=== PATIENT | male | born 1940 | race Caucasian/White ===

== ENCOUNTER 2022-06-08 14:26 | Outpatient (CLI) | payer MEDICARE ==
[~2022-06-08 14:26] MED LIST: Iopamidol-370 76% 500 ML MDV (1 ML CHARGE) ONE
== END 2022-06-08 14:27 | disposition home or self-care (01) ==
LOC: BICCT 14:26
PROVIDERS: ATTEND Nurse Practitioner Family
DX: R91.1 Solitary pulmonary nodule (principal); C91.10 Chronic lymphocytic leukemia of B-cell type not having achieved remission
CPT/HCPCS: 71260; 82565; Q9967

== ENCOUNTER 2023-04-20 09:56 | Outpatient (CLI) | payer MEDICARE | END 2023-04-20 09:57 | disposition home or self-care (01) | LOC: MRI 09:56 | PROVIDERS: ATTEND Neurological Surgery | DX: M51.16 Intervertebral disc disorders with radiculopathy, lumbar region (principal); M51.37 Other intervertebral disc degeneration, lumbosacral region | CPT/HCPCS: 72148 ==